=== PATIENT | female | born 1975 | race Caucasian/White ===

== ENCOUNTER 2017-02-11 00:01 | Emergency (ER) | payer MEDICAID ==
[~2017-02-11] VITALS: Ht 167.6 cm; Wt 58.7 kg
[2017-02-11 01:03] VITALS: BP 117/74
== END 2017-02-11 01:06 | disposition home or self-care (01) ==
LOC: ED 01:00
DX: F12.10 Cannabis abuse, uncomplicated (principal)
CPT/HCPCS: 99284